=== PATIENT | male | born 2005 | race Caucasian/White ===

== ENCOUNTER 2024-08-14 19:11 | Emergency (ER) | payer BC, MEDICAID ==
[~2024-08-14] VITALS: Ht 170.2 cm; Wt 95.5 kg
[2024-08-14] MEDS: LIDOcaine 1% W/epiNEPHrine 1:100,000 20ml vial SQ ONE (20:18)
[2024-08-14] MEDS ORDERED: HYDR-3965 PO (21:26)
[2024-08-14] MEDS ORDERED: CEPH-585 PO (21:26)
[2024-08-14 21:50] VITALS: BP 145/92; PULSE 84; RESP 17; TEMP 98.8; O2SAT 98
[2024-08-15] MEDS ORDERED: HYDR-3965 PO (16:22)
== END 2024-08-14 21:54 | disposition home or self-care (01) ==
LOC: ER 19:12
DX: S91.312A Laceration without foreign body, left foot, initial encounter (principal); W45.8XXA Other foreign body or object entering through skin, initial encounter; Y93.89 Activity, other specified; Y92.89 Other specified places as the place of occurrence of the external cause; Y99.8 Other external cause status
CPT/HCPCS: 12044; 99284; A6222; A6223; J7030; A6258; A6446; A6449